=== PATIENT | female | born 1960 | race Caucasian/White ===

== ENCOUNTER → 2019-05-16 | Outpatient (CLI) | payer BC ==
[~2019-05-16] MED LIST: ASMANEX0.135 GM IH; MUCINEX TA600 MG/TA1 PO; NASONEX17 GM; PROBIOTIC1 EACH PO; [UNRECOGNIZED DRUG - OTHER] PO
== END ==
LOC: BC 05-15 19:41
DX: Z12.31 Encounter for screening mammogram for malignant neoplasm of breast (principal)

== ENCOUNTER → 2020-01-29 | Outpatient (CLI) | payer BC | LOC: LAB 14:36 | PROVIDERS: ATTEND Anesthesiology | DX: Z01.812 Encounter for preprocedural laboratory examination (principal); Z20.828 Contact with and (suspected) exposure to other viral communicable diseases ==

== ENCOUNTER → 2020-06-27 | Outpatient (CLI) | payer BC | LOC: RAD 11:06 | DX: Z12.31 Encounter for screening mammogram for malignant neoplasm of breast (principal) ==

== ENCOUNTER → 2021-05-19 | Outpatient (CLI) | payer BC ==
[~2021-05-19] MED LIST changes: +BREO ELLIPTA 21 EACH INH; +OMEPRAZOLE40 MG PO; +VENTOLIN HFA 1818 GM INH
--- NOTE | ~2021-05-19 | O ---
[facility] [place] [address] OPERATIVE REPORT Name: PRABHA MARI Room #: REG GALI [place].#: [id number] Admission: 05/19/21 Attend Phys: Hilaria Bueno DO Discharge: Date of : 64 Report #: [id number] THIS REPORT FOR: cc: FAM - Family physician unknown FAM - Family physician unknown Hernandez Newby MD ~ DATE OF SERVICE: 05/21/2021 DATE OF PROCEDURE: 05/21/2021 SERVICE: Orthopedics. FACILITY: [facility]. SURGEON: Hernandez Newby MD SEO MANAGER: Nicolle Dennison. PREOPERATIVE DIAGNOSES: 1. Left knee pain. 2. Status post previous left knee arthroscopy with medial meniscus repair. 3. History of left knee arthrofibrosis and residual left knee stiffness. POSTOPERATIVE DIAGNOSES: 1. Left knee pain. 2. Status post previous left knee arthroscopy with medial meniscus repair. 3. History of left knee arthrofibrosis and residual left knee stiffness. 4. Left knee medial meniscus tear. 5. Minimal left knee chondromalacia. PROCEDURES: 1. Left knee arthroscopy with partial medial meniscectomy. 2. Left knee extensive synovectomy with lysis of adhesions. COMPLICATIONS: None. DRAINS: None. SPECIMENS: None. ANESTHESIA: General. FINDINGS: 1. Extensive adhesions primarily within the anterior compartment, but extending into the medial and lateral compartments, treated with resection with a shaver, some suprapatellar pouch adhesions were present and resected as well. No [facility] [place] [address] OPERATIVE REPORT Name: PRABHA MARI Room #: REG GALI Isaacs#: [id number] Admission: 05/19/21 Attend Phys: Hilaria Bueno DO Discharge: Date of : 64 Report #: [id number] significant posterior compartment pathology in regards to adhesion. 2. Retear of the posterior horn of the medial meniscus at the site of previous repair treated with partial meniscectomy approximately 40% meniscal volume and total resected. HISTORY: The patient is a 60-year-old female who approximately a year and a half ago underwent an arthroscopic medial meniscus repair in an outside facility. She developed stiffness afterwards and we treated her for over a year now with rest, activity modifications, physical therapy, intraarticular injections and had some improvement both in range of motion and pain in general, but she continued to have recurrent episodes of discomfort that was localized to the medial joint line as well as stiffness periodically. She is indicated for surgical treatment after failing conservative measures. Risks, benefits, alternatives and indications were discussed with her in detail. Risks include but not limited to pain, bleeding, infection, injuring nerves or blood vessels, persistent pain despite surgical intervention, failure of any repairs, progression of any preexisting chondral injury, stiffness, need for further surgery as well as complications related to anesthesia. Despite the risks and wished to proceed. PROCEDURE IN DETAIL: After left lower extremity was correctly identified as the operative extremity, the patient was taken to the operating room. General anesthesia was induced without complication. She was padded appropriately. Prophylactic antibiotics were administered at appropriate time. Tourniquet was applied to left leg. Left lower extremity was then prepped and draped in standard sterile fashion. Timeout procedure was performed. Esmarch was used, tourniquet inflated to 250 mmHg. Standard anterolateral portal was established as well as anteromedial working portal. Diagnostic arthroscopy revealed the above findings. It was difficult to initially visualize the patella due to the adhesions extending from the patella down to the anterior tibia and across the front of the knee and the anterior compartment. The leg was placed in the valgus position, the medial compartment was evaluated. The anterior horn of the medial meniscus was normal. The articular cartilage in the medial compartment, overall was quite healthy appearing. There was just some mild area of superficial chondromalacia at the anterior aspect of the medial femoral condyle, but no areas of significant grade 3 or grade 4 chondromalacia. The posterior horn of the medial meniscus was unstable and had a clear radial tear with a thickened and fibrotic meniscal tissue at the site of the previous repair. There were two visible stitches. These were then resected. This is an unstable complex tear with primarily radial component near the root as well as horizontal component of the posterior horn. A biter and shaver were used to resect the unstable portion of the meniscus ultimately leading to resection of approximately 35-40% of meniscal volume remaining portion of the meniscus was healthy. [address] [address] OPERATIVE REPORT Name: JACEYPRABHA SHAWN Room #: MARIO Isaacs#: [id number] Admission: 05/19/21 Attend Phys: Hilaria Bueno DO Discharge: Date of : 64 Report #: [id number] The anterior cruciate ligament was intact. There was some scarring at the base of the ACL that was resected with a shaver. I spent some additional time transecting the adhesions in the anterior knee with 11 blade and then resecting them with a shaver. The leg was placed in [id number] position, the lateral compartment was evaluated and found to be intact with normal meniscus and cartilage. Final resection of the fibrosis was performed and the knee was placed into extension. Debridement of the residual adhesions in the suprapatellar pouch was performed to ensure that resection was completed, working down the medial and lateral gutters. After this was completed, arthroscopic effusion was drained. Instruments removed. Portal sites were closed. Sterile dressing was applied. The patient was awakened from anesthesia and taken to recovery room in stable condition. No complications. All counts were reported as correct. By: [id number] Hernandez Newby MD /shai
== END ==
LOC: LAB 05:34
PROVIDERS: ATTEND Student in an Organized Health Care Education/Training Program
DX: Z01.812 Encounter for preprocedural laboratory examination (principal); Z20.822 Contact with and (suspected) exposure to COVID-19